=== PATIENT | female | born 1970 | race African-American/Black ===

== ENCOUNTER 2016-09-05 04:37 | Emergency (ER) | payer MEDICARE, MEDICAID ==
[~2016-09-05] VITALS: Ht 167.6 cm; Wt 83.9 kg
[~2016-09-05 04:37] MED LIST: CIPROFLOXACIN500 M2 ORAL; NKM
[2016-09-05 04:57] VITALS: BP 142/90
[2016-09-05] MEDS ORDERED: IBUPROFEN600 MG ORAL (05:04)
--- NOTE | 2016-09-05 05:05 | Emergency Room Report ---
History of Present Illness General Chief Complaint: Generalized Weakness Source: Patient Present Illness HPI Is a 45-year-old female who has a history of schizophrenia. She is homeless. She presents with chief complaint of body pain. She said that his been ongoing for 3 years. No trauma. She said she need to some weight but can't. Denies any other complaint. Denies any fever or chills. Denies any trauma. Denies any rest pain the Allergies: Coded Allergies: No Known Allergies (Unverified , 01/09/13) Patient History Past Medical History: see triage record, old chart reviewed, psych hx Past Surgical History: other Pertinent Family History: none Social History: Denies: drug use Now: No Immunizations: other Reviewed Nursing Documentation: PMH: Agreed, PSxH: Agreed Nursing Documentation-PMH Hx Hypertension: Yes Review of Systems Eye: Denies: blurred vision, eye pain ENT: Denies: ear pain, nose congestion, throat swelling Respiratory: Denies: cough, shortness of breath Cardiovascular: Denies: chest pain, palpitations Gastrointestinal: Denies: abdominal pain, diarrhea, nausea, vomiting Musculoskeletal: Denies: back pain, joint pain Skin: Denies: rash Neurological: Denies: headache, numbness Endocrine: Denies: increased thirst, increased urine Hematologic/Lymphatic: Denies: easy bruising All Other Systems: negative except mentioned in HPI Physical Exam Vital Signs Date Time Temp Pulse Resp B/P Pulse Ox O2 Delivery O2 Flow Rate FiO2 09/05/16 04:36 97.0 83 16 142/90 99 Room Air vitals unremarkable Sp02 EP Interpretation: reviewed, normal General Appearance: well appearing, no apparent distress, alert Head: normocephalic, atraumatic Eyes: bilateral eye EOMI, bilateral eye PERRL ENT: hearing grossly normal, normal pharynx Neck: full range of motion, supple, no meningismus Respiratory: chest non-tender, lungs clear, normal breath sounds Cardiovascular #1: regular rate, rhythm, no murmur Gastrointestinal: normal bowel sounds, non tender, no mass, no organomegaly, no bruit, non-distended Musculoskeletal: back normal, gait/station normal, normal range of motion Psychiatric: mood/affect normal Skin: warm/dry Medical Decision Making Diagnostic Impression: Primary Impression: Myalgia ER Course Patient with generalized body pain. She is walking without any difficulty. She said she does not go to any shelters. Is no acute psychosis or any criteria for 5150. We'll discharge Last Vital Signs Date Time Temp Pulse Resp B/P Pulse Ox O2 Delivery O2 Flow Rate FiO2 09/05/16 04:36 97.0 83 16 142/90 99 Room Air Status: improved Disposition: HOME, SELF-CARE Condition: Stable Scripts Ibuprofen* (MOTRIN*) 600 Mg Tablet 600 MG ORAL THREE TIMES A DAY, #30 TAB 0 Refills Prov: ADI AHMADI M.D. 09/05/16 Referrals: [facility],REFERRING (PCP) Additional Instructions: Take your medications. Followup with your Dr. in 7 days. Followup with her mental health provider as scheduled. Return if worse. ADI AHMADI M.D. Sep 05, 2016 05:05
[2016-09-05 05:30] VITALS: BP 142/90
== END 2016-09-05 05:30 | disposition home or self-care (01) ==
LOC: EDBD 04:37 → EMR 04:56
DX: M79.1 Myalgia (principal); I10 Essential (primary) hypertension; F20.9 Schizophrenia, unspecified; Z59.0 Homelessness
CPT/HCPCS: 99283

== ENCOUNTER 2017-01-21 04:31 | Emergency (ER) | payer MEDICARE, MEDICAID ==
[~2017-01-21] VITALS: Ht 165.1 cm; Wt 90.7 kg
[~2017-01-21 04:31] MED LIST changes: +IBUPROFEN600 MG ORAL
[2017-01-21] MEDS ORDERED: NKM (04:40)
[2017-01-21 04:45] VITALS: BP 114/79
--- NOTE | 2017-01-21 05:08 | Emergency Room Report ---
History of Present Illness General Chief Complaint: Behavioral Complaint Source: Patient, Medical Record, EMS Present Illness HPI Is a 46-year-old female with is a schizophrenia and also drug abuse based on previous visits. She presents with chief complaint of feeling suicidal. Denies any fever chills denies any nausea vomiting. No particular plan. Much easier, per se she asked for is a place to sleep and food. No recent admission. Admit to drug abuse. Allergies: Coded Allergies: No Known Allergies (Unverified , 01/09/13) Patient History Past Medical History: see triage record, old chart reviewed, schizophrenia Past Surgical History: other Family History: none Social History: tobacco use, drug use, single Last Menstrual Period: ukn Now: No - ukn Immunizations: other Reviewed Nursing Documentation: PMH: Agreed, PSxH: Agreed Nursing Documentation-PMH Past Medical History: No History, Except For Hx Hypertension: Yes History Of Psychiatric Problem: Yes Review of Systems ENT: Denies: sore throat Cardiovascular: Denies: chest pain, palpitations Gastrointestinal/Abdominal: Denies: diarrhea, nausea, vomiting Musculoskeletal: Denies: back problems Skin: Denies: rash Neurological: Denies: PEDRO, seizures All Other Systems: negative except mentioned in HPI Physical Exam Vital Signs Date Time Temp Pulse Resp B/P Pulse Ox O2 Delivery O2 Flow Rate FiO2 01/21/17 04:26 97.9 54 16 100/58 99 Room Air vitals normal Sp02 EP Interpretation: reviewed, normal General Appearance: alert/responsive, no apparent distress, non-toxic Head: normocephalic, atraumatic Eyes: PERRL, EOMI ENT: oropharynx normal Neck: supple/symm/no masses Respiratory: effort normal, no rhonchi, no wheezing Cardiovascular: no murmur, gallop, rub Gastrointestinal: non-tender, no mass, non-distended, no rebound/guarding, normal bowel sounds Musculoskeletal: gait & station normal Neurologic: oriented x3, sensory intact, motor strength/tone normal Suicide Risk Assessment: Suicidal Ideation: Yes Had intent to initiate attempt: No Pt's plan for suicide attempt: No Has means to complete attempt: No Skin: no rash, normal palpation Medical Decision Making Diagnostic Impression: Primary Impression: Acute psychosis Additional Impression: Drug abuse ER Course patient presents with drug and alcohol abuse and complaint of suicidal. She slept here and after she woke up said she is no longer suicidal. We'll discharge home. This patient is a chronic risk of self injury due to poor impulse control, limited coping skills, and judgment intermittently impaired by intoxication. I believe that the available clinical evidence to suggest that these characteristics derived primarily from personality disorder and are likely very stable over time. Hospitalization would likely attenuate risk of self-harm only during jail period, without lasting risk reduction. Serious self-harm , while possible, would likely be inadvertent, and because of impulsivity, and foreseeable. For these reasons, I do not believe hospitalization would provide meaningful reduction in risk of self-harm. Last Vital Signs Date Time Temp Pulse Resp B/P Pulse Ox O2 Delivery O2 Flow Rate FiO2 01/21/17 04:45 97.9 57 15 114/79 99 Room Air Status: improved Disposition: HOME, SELF-CARE Condition: Stable Patient Instructions: Self-Destructive Behavior Additional Instructions: Abstain from drugs and alcohol. Followup with mental health in a week. Return if worse. ADI AHMADI M.D. Jan 21, 2017 05:08
[2017-01-21 06:07] VITALS: BP 114/79
== END 2017-01-21 06:13 | disposition home or self-care (01) ==
LOC: EDBD 04:31 → EMR 05:06
DX: F23 Brief psychotic disorder (principal); F19.10 Other psychoactive substance abuse, uncomplicated; I10 Essential (primary) hypertension
CPT/HCPCS: 99283

== ENCOUNTER → 2018-07-27 | Emergency (ER) | payer MEDICARE, MEDICAID ==
[~2018-07-27] VITALS: Ht 162.6 cm; Wt 77.1 kg
[~2018-07-27] MED LIST changes: +DEPAKOTE250 MG PO; +QUETIAPINE FUMA25 MG ORAL
--- NOTE | 2018-07-27 03:08 | NUR ---
ED Nurse Note: Received report. TABBY from street, ambulance personnel stated she is hearing voices and talking to them but denies having thoughts of suicide. Pt can get easily agitated from voices and presents restless but ambulatory, AAOx3. Will monitor closely and carry out MD's orders.
[2018-07-27 03:32] VITALS: BP 139/78
--- NOTE | 2018-07-27 03:46 | Emergency Room Report ---
History of Present Illness General Chief Complaint: Behavioral Complaint Source: Patient, EMS Present Illness HPI This is a 47-year-old female with a history of schizophrenia. She saw her medication. She was brought in by EMS for aggressive behavior. She completed of hearing voices. Unknown who called 911. She denies suicidal thoughts homicidal thought. She has been here in the past with history of cocaine and amphetamine abuse. She denies taking any drugs. She said sometimes people injected into her. Denies any other complaint. Said that she was on Seroquel but did not like it because it causes constipation. She requests something different. Allergies: Coded Allergies: HALOPERIDOL (Verified Allergy, Unknown, 07/27/18) Patient History Past Medical History: see triage record, old chart reviewed Past Surgical History: other Family History: none Social History: tobacco use, drug use Last Menstrual Period: pt unable to disclose Now: No Immunizations: other Reviewed Nursing Documentation: PMH: Agreed; PSxH: Agreed Nursing Documentation-PMH Hx Hypertension: Yes History Of Psychiatric Problem: Yes - schizophrenia Review of Systems ENT: Denies: sore throat Cardiovascular: Denies: chest pain, palpitations Gastrointestinal/Abdominal: Denies: nausea, vomiting, diarrhea Musculoskeletal: Denies: back problems Skin: Denies: rash Psychiatric: Reports: prior hx, hallucinations Neurological: Denies: PEDRO, seizures All Other Systems: negative except mentioned in HPI Physical Exam Vital Signs Date Time Temp Pulse Resp B/P (MAP) Pulse Ox O2 Delivery O2 Flow Rate FiO2 07/27/18 02:54 99.1 89 14 137/76 99 Room Air vitals shira Sp02 EP Interpretation: reviewed, normal General Appearance: alert/responsive, no apparent distress, non-toxic, other - Disheveled Head: normocephalic, atraumatic Eyes: PERRL, EOMI ENT: oropharynx normal Neck: supple/symm/no masses Respiratory: effort normal, no rhonchi, no wheezing Cardiovascular: no murmur, gallop, rub Gastrointestinal: non-tender, no mass, non-distended, no rebound/guarding, normal bowel sounds Musculoskeletal: gait & station normal Neurologic: oriented x3, sensory intact, motor strength/tone normal Skin: no rash, normal palpation Medical Decision Making Diagnostic Impression: Primary Impression: Acute psychosis Additional Impression: Drug abuse ER Course Patient with acute psychosis. She is willing to take Zyprexa here. She is asking for food. Eating without a problem. At one point she was mad at the nursing staff is that she does want to stay any longer. She got up and left. Last Vital Signs Date Time Temp Pulse Resp B/P (MAP) Pulse Ox O2 Delivery O2 Flow Rate FiO2 07/27/18 02:54 99.1 89 14 137/76 99 Room Air Status: improved Disposition: HOME, SELF-CARE Condition: Stable Referrals: NOT [facility]OSEN [facility]/,REFERRING (PCP) Patient Instructions: Self-Destructive Behavior Rajinder Cesar MD Jul 27, 2018 03:46
--- NOTE | 2018-07-27 03:51 | NUR ---
ED Nurse Note: Pt got very agitated, yelling and throwing things in the room. Pt left ER ambulatory, AAOx4, refusing to sign any documentation. CN and ROSED aware.
== END | disposition home or self-care (01) ==
LOC: EDBD 02:51 → EDUNIT# 02:51 → EMR 03:10
DX: F23 Brief psychotic disorder (principal); F20.9 Schizophrenia, unspecified; I10 Essential (primary) hypertension; F19.10 Other psychoactive substance abuse, uncomplicated
CPT/HCPCS: 99282